=== PATIENT | male | born 1955 | race Two or more races ===

== ENCOUNTER → 2016-12-19 | Outpatient (CLI) | payer OTHER | LOC: CIMAGING 11:29 | PROVIDERS: ATTEND Family Medicine | DX: M11.251 Other chondrocalcinosis, right hip (principal); M11.252 Other chondrocalcinosis, left hip | CPT/HCPCS: 73502-PO ==

== ENCOUNTER → 2017-01-25 | Outpatient (CLI) | payer OTHER | LOC: FIMAGING 15:40 | PROVIDERS: ATTEND Family Medicine | DX: M79.89 Other specified soft tissue disorders (principal); M79.604 Pain in right leg ==

== ENCOUNTER → 2017-12-14 | Outpatient (CLI) | payer OTHER ==
[~2017-12-14] MED LIST: IOPAMIDOL (ISOVUE-300) 100 ML BTL ONE
== END ==
LOC: CIMAGING 11:41
PROVIDERS: ATTEND Family Medicine
DX: K57.30 Diverticulosis of large intestine without perforation or abscess without bleeding (principal); K76.89 Other specified diseases of liver; M41.86 Other forms of scoliosis, lumbar region
CPT/HCPCS: 74177-PO; Q9967